=== PATIENT | female | born 1950 | race Caucasian/White ===

== ENCOUNTER → 2020-04-14 13:43 | Outpatient (CLI) | payer MEDICARE, SELFPAY ==
--- NOTE | 2020-04-14 13:50 | DI.RAD.S_ITS ---
PROCEDURE: XR SHOULDER RT MIN 2V INDICATIONS: Rt shoulder pain TECHNIQUE: 3 views of the shoulder were acquired. COMPARISON: None. FINDINGS: Bones: No fractures or dislocations. No suspicious bony lesions. Visualized ribs appear intact. Glenohumeral joint degeneration with subchondral sclerosis and spurring. Mild AC joint degeneration. Soft tissues: No suspicious soft tissue calcifications. IMPRESSION: Degenerative changes as above If the patient's pain or other symptoms persist, consider further evaluation with MRI Dictated by: Josh Frausto M.D. on 04/14/2020 at 14:28 Approved by: Josh Frausto M.D. on 04/14/2020 at 14:29
== END ==
PROVIDERS: PCP Family Medicine; Referring Provider Family Medicine; Visit Provider Family Medicine
DX: M25.511 Pain in right shoulder (principal); M19.011 Primary osteoarthritis, right shoulder
CPT/HCPCS: 73030

== ENCOUNTER → 2021-06-21 14:06 | Outpatient (CLI) | payer MEDICARE, SELFPAY ==
[2021-06-21 14:41] LABS: Appearance Urine UA CLEAR; Bilirubin Urine UA 1+ (NEGATIVE); Color Urine UA YELLOW; Glucose Urine UA TRACE g/dL (Negative); Ketones Urine UA TRACE (NEGATIVE); Leukocyte Esterase Urine UA TRACE (NEGATIVE); Nitrite Urine UA POSITIVE (Negative); Occult Blood Urine UA 2+ (Negative); Protein Urine UA NEGATIVE (Negative); Specific Gravity Urine UA 1.025 (1.000-1.035); Urobilinogen Urine UA 0.2 E.U./dL (0.2)
[2021-06-21 14:43] LABS: Ictotest Urine Negative (Negative)
[2021-06-21 14:46] LABS: Bacteria Urine Many (>30); Culture Indicated Urine Specimen Cultured; RBC Urine 5-10/HPF (0-5/HPF); WBC Urine 5-10/HPF (0-5/HPF)
[2021-06-21 14:50] LABS: Hemoglobin A1C% w Est Avg Glu 4.8 % (4.0-6.0)
[2021-06-21 14:52] LABS: Blood Urea Nitrogen 21 mg/dL (7-17); Calcium 10.2 mg/dL (8.4-10.2); Carbon Dioxide 27 mmol/L (22-32); Chloride 105 mmol/L (98-107); Estimated Glomerular Filt Rate > 60.0 mL/min (>60); Glucose 127 mg/dL (80-110); HEMOLYSIS < 15 (0-50); Potassium 4.6 mmol/L (3.4-5.1); Sodium 136 mmol/L (137-145)
[2021-06-21 15:17] LABS: Add Manual Diff / Slide Review NO; Basophils Absolute Auto 0 /uL (0-100); Basophils Percent Auto 0.6 % (0-2); Eosinophils Absolute Auto 100 /uL (0-450); Eosinophils Percent Auto 0.8 % (2-4); Hematocrit 38.9 % (36-46); Hemoglobin 13.2 g/dL (12.0-16.0); Lymphocytes Absolute Auto 2000 /uL (1100-4500); Lymphocytes Percent Auto 28.7 % (25-40); Mean Corpuscular HGB Conc 33.8 % (30-36); Mean Corpuscular Hemoglobin 30.8 PG (26-34); Monocytes Absolute Auto 800 /uL (0-900); Monocytes Percent Auto 11.4 % (3-14); Neutrophils Absolute Auto 4000 /uL (1500-7000); Neutrophils Percent Auto 58.5 % (50-75); Platelet Count 326 X10^3/uL (150-400); Red Blood Cell Count 4.28 X10^6/uL (4.0-5.2); Red Cell Distribution Width 12.9 % (11.6-14.8); White Blood Cell Count 6.8 X10^3/uL (4.5-11.0)
== END ==
PROVIDERS: PCP Family Medicine; Referring Provider Orthopaedic Surgery; Visit Provider Orthopaedic Surgery
DX: Z01.812 Encounter for preprocedural laboratory examination (principal); R73.9 Hyperglycemia, unspecified; N39.0 Urinary tract infection, site not specified
CPT/HCPCS: 36415; 80048; 81001; 83036; 85025; 87077; 87086; 87186

== ENCOUNTER → 2021-10-15 08:25 | Outpatient (CLI) | payer MEDICARE, SELFPAY ==
[2021-10-15 11:14] LABS: COVID19 -Nasal RAPID Negative (Negative)
== END ==
PROVIDERS: PCP Family Medicine; Visit Provider Physician Assistant
DX: Z20.822 Contact with and (suspected) exposure to COVID-19 (principal)
CPT/HCPCS: 87635; C9803

== ENCOUNTER 2021-10-17 09:02 | Observation (INO) | payer MEDICARE, SELFPAY ==
[2021-07-10 08:30] VITALS: BMI 25.8
[2021-10-16] VITALS (13 sets, daily range): BP systolic 99–131; BP diastolic 47–80; PULSE 58–86; RESP 13–18; TEMP 35.9–37.3; O2SAT 94–99; BMI 25.8
[2021-10-16] MEDS: CELECOXIB 200 MG CAPSULE PO (08:54)
[2021-10-16] MEDS: ACETAMINOPHEN 325 MG TABLET 975 MG PO (08:54)
[2021-10-16] MEDS: PREGABALIN 75 MG CAPSULE PO (08:54)
--- NOTE | 2021-10-16 09:00 | DI.RAD.S_ITS ---
PROCEDURE: XR HIP W PEL IF DONE LT 2V INDICATIONS: prosthesis placement TECHNIQUE: 2 view(s) of the hip acquired. COMPARISON: [facility], CR, XR PELVIS WITH LATERAL HIP LEFT, 09/19/2021, 9:59. [facility], RUPERT, [id number] W PEL IF PERFORMED, 12/19/2015, 13:38. FINDINGS: Intraoperative guidance provided for left hip arthroplasty. The prosthesis projects in the expected location. IMPRESSION: Intraoperative guidance for left hip arthroplasty. Dictated by: Nazario Parisi M.D. on 10/16/2021 at 14:35 Approved by: Nazario Parisi M.D. on 10/16/2021 at 14:37
[2021-10-16] MEDS: LACTATED RINGERS 1,000 ML 42 ML IV ×2 (09:33→13:30)
--- NOTE | 2021-10-16 11:03 | PM.PREOP ---
Pre-operative Note COVID-19 COVID-19 status: Negative Interval Note History & Physical reviewed/Exam performed by Physician: Yes Changes to H&P: No
--- NOTE | 2021-10-16 11:04 | P.OP_ITS ---
Operative Date/Time/Diagnoses Date of procedure: 10/16/21 Time of procedure: 11:50 Pre-op diagnosis: left hip OA Post-op diagnosis: same Procedure & Clinicians Procedure: Left total hip arthroplasty anterior approach Same procedure as scheduled: Yes Indications: The patient has had progressively worsening left hip pain with radiographic ross ges consistent with arthritis. Non-operative management has failed and the patient has requested total hip replacement. The risks, benefits and alternatives to surgery were discussed with the patient prior to proceeding. Risks discussed included, but were not limited to, failure to relieve pain, leg length discrepancy, dislocation, stiffness, infection, nerve damage, deep venous thrombosis, pulmonary embolism, stroke, coma, heart attack, permanent paralysis and , as well as the potential need for eventual revision of the prosthetic. Surgeon: Shauna Ko Finance Administrator: Harmony Michel Anesthesia Type: General and Spinal Operative Notes Findings: Soft bone, good fixation good stability Closure Type: primary Specimen(s): none sent Prosthetic devices, grafts, tissues, transplants, or devices: Ko and nephew size 7 standard offset anthology, 52 mm cup, neutral poly liner, 36 by +0 Oxinium head, 1 screw 20 mm Estimated Blood Loss (mL): 250 Blood products transfused: none Procedure in detail: The patient was brought to the operating room. Patient was carefully positioned in the supine position. Time-out was performed and antibiotics were given. Anesthesia was induced. She was positioned in the on the table in order to allow hyperextension of the hip. The left lower extremity was prepped and draped in a standard sterile fashion. An anterior left hip incision was made 1 fingerbreadth lateral to the anterior superior iliac spine and extended distally towards the greater trochanter. Dissection was carried out through skin and subcutaneous tissues. Superficial hemostasis was achieved. The fascia over the tensor fascia rui was defined and incised with a knife. Two Allis clamps were used to grasp the fascia. Tensor fascia rui was retracted laterally. A gelpi retractor was placed. Dissection was carried out down along the neck. The circumflex vessels were carefully identified and cauterized with the Aqua Mantis. There was good visualization of the femoral neck. A Cobra was placed superior to the neck and the gluteus fibers were carefully stripped from that superior aspect of the capsule. A 2nd retractor was placed along the inferior aspect of the neck. The rectus insertion along the capsule was partially released. A 3rd retractor that was then gently placed over the rim of the acetabulum under the rectus. Capsule was carefully incised and released from the intertrochanteric line circumferentially superior to the mid sagittal line and inferiorly to the mid sagittal line until the lesser trochanter was palpable. A tag stitch was placed both in the superior and inferior limb of the capsular insertion. Along the acetabulum capsule was also released up to the mid sagittal 12:00 position. A portion of the labrum was resected. A saw was used to perform an osteotomy at the level of the intertrochanteric line and the junction of the superior femoral neck leaving approximately 1 finger breath of residual inferior neck above the lesser trochanter. A 2nd cut was made along the femoral neck at the base of the head and a napkin ring of neck was removed. Corkscrew was placed in the femoral head and the head was removed without difficulty. Retractors were then repositioned around the acetabulum. Residual labrum was resected and additional osteophytes were removed. A reamer that was 4 mm below the templated size was placed by hand in the acetabulum and it was reamed to centralize the acetabulum. It was then reamed up to 2 under the templated size and fluoroscopy was brought in to confirm the position of the reaming and depth of reaming. I reamed 1 under the anticipated size and touched the rim with line to line reaming. A trial cup was placed and noted that it was appropriately sized and fluoroscopy confirmed position and depth. The component was open and inserted without difficulty fluoroscopic imaging was used to confirm that the cup had been adequately seated and was well positioned. It was further stabilized with a single screw. Neutral poly liner was placed. The cup was tested and noted to be stable. Attention was then directed to the femur. The femur was gently hyperextended additional capsular release was performed as needed in order to allow adequate visualization of the proximal femur with elevation of the femur. Patient was placed in a hyperextended slightly adducted position with maximum external rotation. Box osteotome was used to check for any residual neck as well as sclerotic bone along the trochanter. [place] pepper was placed in the femur. Additional broaching was performed. Canal finder was used to determine the alignment of the canal and position. Size 1 broach was placed. The canal was then appropriately broached up to the templated size as long as there was adequate stability of the broach and serial advancement of the broach without excessive impingement. Specific attention was directed at avoiding varus attempting to direct the distal aspect of the broach more anteriorly and avoiding excessive anteversion. Trial reduction showed acceptable range of motion, good stability, no posterior impingement, episcopal of leg length and appropriate lateral shuck. I also hyperflexed the hip and checked that there was no impingement anteriorly and there was good stability with flexion, adduction and internal rotation. Marcaine and Exparel were injected. The stem was placed without difficulty. Repeat trial reduction and x-ray showed acceptable overall position, length, and no evidence of the femoral fracture. Final head was placed. Wound was meticulously irrigated with normal saline. The hip was reduced and additional Exparel and Marcaine were injected. The capsule was closed with interrupted nonabsorbable sutures. The fascia of the tensor was closed with interrupted and running Vicryl. No drain was placed. Any tensor fascia rui muscle that appeared to be contused or injured which was a minimal amount was carefully resected. Capsule around the tensor was injected with Exparel and Marcaine. The skin was closed with barbed stitches for the subcutaneous tissue and skin. We also used surgical glue. The wound was dressed sterilely. Brief Betadine soak was also used and was meticulously irrigated with normal saline. Patient was transferred to recovery room in satisfactory condition. Complications: none Post-operative Condition: stable Disposition: Acute Care Plan for aftercare: The patient will be maintained on a standard total hip replacement protocol with weight bearing as tolerated and anterior hip precautions. The patient will receive Aspirin and sequential compression devices for DVT prophylaxis. The patient will be discharged home when safe for the home environment.
[2021-10-16] MEDS: CEFAZOLIN 2 GM/20 ML SYRINGE IV ×2 (11:38→20:24)
[2021-10-16] MEDS: TRANEXAMIC ACID 1,000 MG VIAL 1000 MG INJ ×2 (11:55→13:52)
--- NOTE | 2021-10-16 12:03 | SUR.OPER ---
Supine on padded [place] table with bilateral legs secured in padded positioning boots and suspended in positioning spars, operative leg in traction per surgeon. Head on one pillow. Arm on non-operative side secured on padded armboard <90 degrees abduction. Arm on operative side padded and resting across chest then secured with tape over sheet. Padded perineal post in place per surgeon.
[2021-10-16] MEDS: BUPIVACAINE 0.25% (PF) 60 ML, EPINEPHrine 0.3 MG INJ (12:08)
[2021-10-16] MEDS: BUPIVACAINE LIPOSOME 266 MG/20 ML VIAL INJ (12:09)
--- NOTE | 2021-10-16 13:59 | DI.RAD.S_ITS ---
PROCEDURE: XR HIP W PEL IF DONE LT 2V INDICATIONS: LEF T TOTAL HIP TECHNIQUE: AP pelvis and lateral view of the left hip acquired. [facility] 14[facility]02[id number]FOR[facility], 12/19/2015, 13:38. FINDINGS: Bones: Patient is status post total left hip arthroplasty, with hardware components in expected positions. The hip joint appears congruent. The visualized bony structures appear intact. Soft tissues: Overlying postoperative changes are noted. No suspicious soft tissue densities. IMPRESSION: Expected appearance of the total left hip arthroplasty. Dictated by: Nazario Parisi M.D. on 10/16/2021 at 14:45 Approved by: Nazario Parisi M.D. on 10/16/2021 at 14:47
[2021-10-16] MEDS: LACTATED RINGERS 1,000 ML 125 ML IV (16:11)
[2021-10-16] MEDS: IBUPROFEN 400 MG TABLET PO ×2 (18:05→20:24)
--- NOTE | 2021-10-16 19:24 | PC.NURSE ---
Admit Note Pt arrived to room 228 at 1513 from PACU. Alert and oriented x3, denies pain. Able to move legs, denies numbness, good pulses to BLEs. Aquacel dressing to left C/D/I. Walker and clothing at bedside, declines to lock up any valuables in safe. Oriented to call light/bed/tv controls. Bladder scanned for over 500 ml, attempted to void via bedpan with no success, denies any urge to void. Straight cathed per MD order with 700 ml clear yellow urine resulting. Call light within reach.
[2021-10-16] MEDS: polyethylene glycoL 3350 17 GM POWD.PACK PO (20:24)
[2021-10-16] MEDS: ACETAMINOPHEN 325 MG TABLET 650 MG PO (20:24)
[2021-10-16] MEDS: DOCUSATE 100 MG CAPSULE PO (20:25)
[2021-10-16] MEDS: ASPIRIN EC 81 MG TABLET PO (20:25)
[2021-10-16] MEDS: OXYCODONE IR 5 MG TABLET PO (23:16)
[2021-10-17] VITALS: BP 103/55; PULSE 73; RESP 18; TEMP 36.8; O2SAT 95
[2021-10-17] MEDS: LACTATED RINGERS 1,000 ML 125 ML IV (00:03)
[2021-10-17] MEDS: IBUPROFEN 400 MG TABLET PO ×4 (00:08→11:41)
[2021-10-17] MEDS: CEFAZOLIN 2 GM/20 ML SYRINGE IV (03:17)
[2021-10-17 04:00] VITALS: BP 106/57; PULSE 61; RESP 18; TEMP 36.6; O2SAT 96
[2021-10-17 05:11] LABS: Hematocrit 30.4 % (36-46); Hemoglobin 10.1 g/dL (12.0-16.0)
--- NOTE | 2021-10-17 07:15 | PM.DS.1 ---
History of Present Illness History of Present Illness Date Patient Seen: 10/17/21 Time Patient Seen: 07:15 Chief complaint: Left hip pain s/p left ARUN Narrative: Patient is complaining of mild left hip pain this morning. She denies any new numbness or tingling. No fevers, chills, night sweats. Overall she is feeling well. She would like to work with physical therapy and hopefully discharge home today. Discharge Providers Provider Discharge Date: 10/17/21 Primary care physician: Dedrick Rivera MD Consults: 10/16/21 09:00 Consult to Anesthesiology Routine Comment: Consulting Provider: Anesthesiologist Reason for consultation: Regional block for post operative pain control 10/16/21 15:02 Consult to Discharge Planning Routine Comment: Consult to Physical Therapy Evaluate & Treat Comment: Physician Instructions: post op ARUN protocol Consult to Respiratory Therapy Evaluate & Treat Comment: Physician Instructions: Evaluate and treat Discharge provider: Harmony Michel PA-C Exam Vital Signs (past 8 hours): - 10/17/21 00:00 10/17/21 04:00 Temperature 98.3 F 97.9 F Pulse Rate 73 61 Respiratory Rate 18 18 Blood Pressure 103/55 L 106/57 L Pulse Oximetry 95 96 Oxygen Delivery Method Room Air Oxygen Flow Rate 0 Narrative Exam Narrative: Pleasant 71-year-old female, resting comfortably in bed, no acute distress. Dressing is clean, dry, intact. Bilateral lower extremities: Motor functions are grossly intact, sensation is grossly intact to light touch, calves are soft and nontender to palpation. Objective Labs Result Diagrams: 10/17/21 04:39 Labs: Laboratory Results - last 24 hr 10/17/21 04:39 Hgb 10.1 L Hct 30.4 L PFSH Medical History Osteoarthritis Peeling skin Surgical History History of carpal tunnel release of both wrists Hx of appendectomy Hx of bilateral cataract extraction (2017) Social History household members: spouse Smoking Status: Never smoker alcohol intake: current Discharge Assessment & Plan Assessment and Plan Assessment: Stable status post left total hip arthroplasty, anterior approach Plan of Treatment: -mobilize with PT. Maintain anterior hip precautions x6 weeks. Weightbearing as tolerated with front wheel walker -continue with current pain regimen and DVT prophylaxis -DC home today once cleared by PT Discharge Plan Discharge Plan Patient Disposition: Home Discharge orders & Medications Discharge Orders: Discharge (Order); Ordered 10/17/21 Ordered By: Harmony Michel Prescriptions: New acetaminophen 500 mg capsule 500 mg PO Q4H MDD Max 3000 mg per day PRN (Reason: fever or pain) Qty: 90 0RF aspirin 81 mg Tablet,Delayed Release (Dr/Ec) 81 mg PO BID Qty: 84 0RF docusate sodium 100 mg Capsule 100 mg PO BID PRN (Reason: Constipation from narcotic pain meds) Qty: 30 0RF ibuprofen 400 mg Tablet 400 mg PO Q4HR MDD Max 2400 mg per day Qty: 90 0RF oxycodone 5 mg Tablet 5 mg PO Q3HR PRN (Reason: Pain, Moderate (4-6)) Qty: 42 0RF Continued etodolac 500 mg Tablet 500 mg PO DAILY PRN (Reason: Pain) 0RF Discontinued aspirin [Aspir-81] 81 mg Tablet,Delayed Release (Dr/Ec) 81 mg PO DAILY 0RF Follow up/Referrals: Dedrick Rivera MD [Primary Care Provider] - Shauna Ko MD [Physician] - (10-14 days for postoperative visit) Diet/Activity/Treatments Diet: Diet as Tolerated and Regular Other treatments: Medications: -Aspirin 81mg twice daily x6 weeks to prevent blood clots. -OTC Tylenol 500 mg 1 tablet every 4 hours as needed for pain/fever. Max 6 tablets per day. -Ibuprofen 400 mg 1 tablet every 4 hours as needed for pain/inflammation. Max 2,400 mg per day. -Oxycodone 5 mg take 1-2 tablets every 4 hours as needed for moderate-severe pain (narcotic pain medication). -As needed medications: -Ducolax and /or MiraLax as needed for constipation from narcotic pain medications. -Pepcid AC as needed for stomach upset (usually from aspirin or ibuprofen). Dressing/Wound care: -Keep Aquacell dressing in place until postoperative follow-up office visit. -Okay to shower. Keep wound out of direct water stream. No soaking or submerging until all the scabs fall off (approximately 6 weeks). -Please call the office if dressing becomes wet, soiled, or saturated. Activities: -Maintain anterior hip precautions x6 weeks. -Weight-bearing as tolerated. Use front wheeled walker, and progress to cane when safe. -Continue with home exercises as directed by your physical therapist. -Elevate ?toes above the nose if you have significant swelling in your lower leg. (A wedge pillow is easiest.) -Ice your incision as needed for pain/inflammation/swelling. Protect your skin with a folded pillowcase. Follow-up: -Follow-up with your surgeon or PA in the office in 10-14 days after surgery. -Follow-up with your surgeon 6 weeks postoperatively. Call the office if you have chest pain, shortness of breath, significant swelling that will not resolve with elevating, fever over 101?, significantly worsening pain. [facility]: [phone] Skin/Wound/Dressing Care Report to your healthcare provider any signs of infection, such as:: chills, fever, night sweats, unusual drainage and unusual redness Visit Report/Discharge Packet Instructions: DI for Hip Replacement Stand Alone Forms: Surgery Discharge Discharge Data Primary Care Provider: Dedrick Rivera Attending Provider: Shauna Ko
[2021-10-17 08:00] VITALS: BP 97/55; PULSE 66; RESP 16; TEMP 37.2; O2SAT 96
[2021-10-17] MEDS: ASPIRIN EC 81 MG TABLET PO (08:27)
[2021-10-17] MEDS: polyethylene glycoL 3350 17 GM POWD.PACK PO (08:27)
[2021-10-17] MEDS: DOCUSATE 100 MG CAPSULE PO (08:27)
[2021-10-17] MEDS: ACETAMINOPHEN 325 MG TABLET 650 MG PO (08:27)
[2021-10-17] MEDS: OXYCODONE IR 5 MG TABLET PO ×2 (08:28→11:41)
--- NOTE | 2021-10-17 10:27 | PT.IIE ---
Current Diagnoses Unilateral primary osteoarthritis, left hip (10/17/21) Surgery Performed Operation Date: 10/16/21 10:45 Actual Procedures p Total Hip Arthroplasty/Anterior Approach(Left) - Shauna Ko MD Medical History (Last Reviewed 10/17/21 @ 07:16 by Harmony Michel PA-C) Osteoarthritis Peeling skin Physical Therapy Inpatient Evaluation/Re-Eval M1 PT/OT-IP Prior Functional Status Start: 10/17/21 10:37 Freq: NEEDED Status: Active Protocol: Document 10/17/21 10:27 DLM (Rec: 10/17/21 10:56 DLM [id number]) Medical Review Prior Functional Status Medical History Reviewed Yes Diet/Fluid Consistency Regular Communication WNL, needs glasses to read Mobility and Gait Independent without device, plans to borrow 3WW and cane from neighbor, neighbor also has a FWW she may be able to borrow Activities of Daily Living and IADL's Independent, drives Prior Functional Level (Other details) left hip pain limited her activity tolerance before surgery Social History Household Members spouse Living Arrangements House Number of Floors (Floors) One Floor Number of Stairs To Enter/Railing? 1-2 without rails Home Environment Standard Height Toilet,Walk in Shower,Tub/Shower Additional Social History Comment has borrowed 3WW in her hospital room, also borrowed a cane, she believes she can borrow a fWW as well M2 PT-IP Current Condition Start: 10/17/21 10:37 Freq: NEEDED Status: Active Protocol: Document 10/17/21 10:27 DLM (Rec: 10/17/21 10:56 DL [id number]) Physical Therapy Current Condition Current Condition Evaluation Date 10/17/21 Treatment Diagnosis left anterior ARUN, impaired mobility and gait Onset Date 10/16/21 M3 PT-IP Subjective Start: 10/17/21 10:37 Freq: NEEDED Status: Active Protocol: Document 10/17/21 10:27 DLM (Rec: 10/17/21 10:56 DL [id number]) Subjective Physical Therapy Visit Type Type Initial Evaluation Visit Start Time 09:17 Visit Stop Time 10:27 Total Visit Minutes 70 Number of RATER ASSOCIATE Visits 0 Physical Therapy Visit Comments Patient Comments She reports having mild numbness on the top of left foot while resting in bed, she feels like her left leg is longer than the right Patient Goals go home today Therapy Pain Assessment Pain When Pain Assessed After Treatment Pain Present Pain Present Pain Reported Location LEFT HIP Intensity 4 Scale Used Numeric (0 - 10) Description Aching,Tender,With Movement Pain Behaviors Guarding Pain Management Techniques Apply Cold,Elevation,Re- positioning M4 PT-IP Mobility and Gait Start: 10/17/21 10:37 Freq: NEEDED Status: Active Protocol: Document 10/17/21 10:27 DLM (Rec: 10/17/21 10:56 DLM [id number]) PT-Bed Mobility Assessment Supine to Sit Supine to Sit Minimal Assistance Sit to Supine Sit to Supine Minimal Assistance Scooting Scooting to Edge of Bed Independent Scooting Up and Down in Bed Independent PT-Transfer Assessment Sit to and From Stand Sit to and from Stand Independent,Use of Upper Extremities Equipment Transfer Assistive Device Gait Belt,Front Wheeled Walker Transfers Transfer Destination Bed,Chair Transfer Technique Stand Step Pivot Transfer Ability Level of Assist Independent,Use of Upper Extremities Comments Mobility Comments she needs education for safe use of UE support during sit- stand Gait Assessment Gait Gait Assistance Required: Standby Assistance Distance (Feet) 200 Able to Maintain Weight Bearing Status Yes During Gait Assistive Devices Assistive Device Gait Belt,Front Wheeled Walker Gait Deviations General Gait Pattern Antalgic Factors Limiting Gait Function Factors Limiting Gait Function Decreased Activity Tolerance, Decreased Strength,Limited Range of Motion,Pain Comments Gait Comments she had difficulty finding a safe pattern with her feet and the FWW but with extra time and training she was able to establish a safe pattern, she tends to keep left LE far in front of her and avoid left knee flexion during swing phase of gait Stair Climbing Assessment Evaluation Level of Assist On Stairs Standby Assistance Devices Stair Climbing Assistive Devices Front Wheel Walker Technique/Endurance Stair Climbing Direction Ascend and Descend Stair Climbing Technique Step to Step Number of Steps Climbed 1 Query Text: Stair Climbing Set # Repetitions (reps) 2 Comments Stair Climbing Comments reviewed options for pt to have UE support on her stairs at home, she reports holding door frames in past, she has a cane and Spouse for assistance, she reports she may be able to use the FWW on the garage step PT-Balance Assessment Sitting Balance and Reactions Static Sitting Balance Ability Normal Dynamic Sitting Balance Ability Good Standing Balance and Reactions Static Standing Balance Ability Good Dynamic Standing Balance Ability Good Device Used FWW M5 PT-IP Objective Assessments Start: 10/17/21 10:37 Freq: NEEDED Status: Active Protocol: Document 10/17/21 10:27 DLM (Rec: 10/17/21 10:56 DL [id number]) Orientation Orientation/Cognition Level of Alertness Alert Orientation Name,Age,Birthday,Month,Date, Year,Day of Week,Place, Situation Language Function Ability No Deficits Noted Safety Awareness Understands Safety Issues Memory Description No Deficits Noted Gross Range of Motion Upper Extremity ROM Assessment Within Functional Limits Lower Extremity ROM Assessment Left Impaired Impairments ant hip precautions following surgery, ankle is WFL Strength Upper Extremity Strength Assessment Within Functional Limits Lower Extremity Strength Assessment Left Impaired Hip flex 2+/5 Knee 3+/5 Ankle DF 5/5 Comments Strength Comments pain limits left LE strength post-op, no DF weakness identified at this time Coordination Assessment Gross Coordination Gross Coordination WNL Sensation Assessment Sensation Gross Sensation WNL Comments Sensation Comments mild numbness reported anterior aspect left foot before activity but it resolved with mobility and gait, pt reports normal touch sensation in left foot, pt instructed to monitor for numbness and notify her physician/nursing if it continues Muscle Tone Muscle Tone WNL Yes M6 PT-IP Treatment Start: 10/17/21 10:37 Freq: NEEDED Status: Active Protocol: Document 10/17/21 10:27 DLM (Rec: 10/17/21 10:56 DL [id number]) Physical Therapy Treatment Exercises Exercises Ankle Pumps,Gluteal Sets,Quad Sets,Heel Slides Education Education Provided Weight Bearing Status,Post-Op Packet,Safety Equipment Issued Equipment Type and Company pt has borrowed 3WW in her room Other Treatments Other Treatment Performed completed training and education this visit, verbally educated her on car transfers , verbally reviewed bathroom equipment options for home, Pt is aware of [facility] as a place to borrow equipment for home, no family present this visit M7 PT-IP Assessment and Plan Start: 10/17/21 10:37 Freq: NEEDED Status: Active Protocol: Document 10/17/21 10:27 DLM (Rec: 10/17/21 10:56 [facility] [id number]) PT Summary Assessment and Plan Potential Rehabilitation Potential Excellent Status of Condition at Evaluation Evolving Summary Impairments Pain,ROM,Strength,Balance, Sensation,Bed Mobility, Transfers,Gait,Activity Tolerance Progress Towards Goals Safe For Discharge,Goals Met Assessment Summary Anais is alert and resting in bed. She tolerated mobility and gait well this visit with FWW. Pt was educated in anterior hip precautions. Training completed with fWW for gait and stairs. Pt has a borrowed 3WW which was trialed for gait but she is safer with the fWW at this time. Pt plans to get a fWW for home use. She appears safe for discharge home today when medically cleared. She reports having a supportive Spouse at home to assist her as needed. Goals Bed Mobility Goal Standby Assistance,Minimal Assistance Transfer Goal Standby Assistance,Front Wheeled Walker Gait Goal Standby Assistance,Front Wheel Walker Gait Distance 150 feet Other Goals up and down 1-2 steps with UE support, CG/min assist Days to Meet Goals 1 Frequency of Treatment Frequency Of Treatment Discharge Treatment Plan Physical Therapy Treatment Plan Bed Mobility Training,Transfer Training,Gait Training, Therapeutic Exercise,Balance Retraining,Post Op Education, Discharge Planning,Hot or Cold Pack,Neuromuscular Re-ed Precautions Anterior Hip Precautions No Hip Extension,No Hip External Rotation Weight Bearing Status Weight Bearing Status Weight Bear as Tolerated Recommendations To Nursing Amount of Assist Needed Standby Assistance Discharge Recommendations PT Discharge Recommendations Home with Assistance, Outpatient PT Other Discharge Recommendations she reports her Spouse will assist at discharge, she has out-pt PT scheduled Equipment Needed for Home Before recommend she use a fWW at Discharge discharge, pt plans to borrow one from her Neighbor Transportation Needs at Discharge Private Vehicle
[2021-10-17 11:30] VITALS: BP 96/55; PULSE 69; RESP 17; TEMP 36.5; O2SAT 97
--- NOTE | 2021-10-17 11:40 | CM.DANOTE ---
DCP/Assessment: Reviewed chart. Patient is a 71yr old female admitted [facility] for elective left ARUN performed on 10-16-21. PCP is Dr. Rivera. Primary payor is 1)Medicare 2)[facility]. Met with patient this AM explained CM/SW role. Patient reports that she plans to d/c home today with outpatient follow up next week. Patient denies any d/c planning needs. Patient evaluated by therapy and cleared to d/c home. P: Home today. KJS Discharge Planning/Care Management CM Discharge Assessment Start: 10/17/21 11:38 Freq: Status: Active Protocol: Document 10/17/21 11:38 KJS (Rec: 10/17/21 11:40 KJS [id number]) Discharge Planning Assessment Assigned Sanitation Worker Hosing Machinery GERSON Kline Contact Information Joao Jimenez Advance Directives? Yes: [facility] Advance Directives on File No History Provided By Patient,Medical Record Prior Living Arrangements House Household Members spouse Type of transporation used prior to Drives own vehicle admit Independent with ADL's Yes Is patient alert and oriented? Yes Caregiver for Another No DME Already Rented / Owned FWW / Walker Patient/Family Preference OP PT Therapy Barriers to Discharge No Discharge Plan Home Referrals Initiated None needed Review Status In Process Next Review Type Continued Stay Review Pre-Anesthesia Assessment Start: 07/10/21 08:30 Freq: Status: Complete Protocol: Document 07/10/21 08:30 CAB (Rec: 07/10/21 09:18 CAB [id number]) Pre-Anesthesia Assessment Preferred Name Pat Patient Information Reviewed Via Phone Assessment Assessment Completed With Patient H&P Completed Within 30 Days Yes Diagnostic Results BMP/CMP,CBC Comment Labs @ [facility], COVID screen @ [facility] Primary Care Provider Dedrick Rivera Seen Specialist in Last 12 Months Yes Specialist Seen Orthopedist Primary Language Kyrgyz Bookmobile Librarian Required No Height 170.18 cm Weight 74.843 kg Body Mass Index (BMI) 25.8 Hearing Ability Normal Visual Assist Glasses Dentition Type Teeth, Natural Present Barriers to Learning None Hx Anesthesia Reactions No Hx Family Anesthesia Reaction No Hx Malignant Hyperthermia No Hx Blood Transfusions No Anesthesia Review Requested No alcohol intake current alcohol intake frequency 3 or more drinks per day Alcohol Intake Frequency Other: 3 beers daily Smoking Status Never smoker Substance Use Type does not use Musculoskeletal Symptoms Abnormal Gait,Difficulty Walking,Joint Pain History of Falling (Recent or History of No ) Patient is completely paralyzed or No completely immobile Mental Status Oriented to own ability Is patient on oxygen? No Does patient have BAHENA/SOB No Hx Sleep Apnea No Currently Taking a Beta Mirella No Can You Climb a Flight of Stairs Without Yes SOB Hx Chest Pain No Hx SOB No Hx Syncope or Dizziness No Anti-Coagulant Therapy No Has a Forklift Truck Mechanic No Cardiac Testing No Hx Pacemaker/ICD No Pacemaker Rep Required? No Cardiac Clearance Received Not Applicable Diet Type At Home Regular dysphagia No Urinary Catheter Present No Hx Urinary Self Catheterization No Diabetes No Patient No Lactating No Hx Drug Resistant Organism No Presence of External or Internal Medical Yes: Bilat IOLs Devices Have you had any close contact with No someone diagnosed with COVID-19? Marital Status Lives With spouse Prior Living Arrangements House Number of Floors (Floors) Two Floors Support System Spouse Does the Patient Have Assistance After Yes Surgery Patient Discharge Plan Description Return Home Comment Pt advised overnight length of stay per surgeon Feels Safe in Current Environment Yes Been Physically Hurt or Threatened By a No Person in Current Environment Do you have thoughts of harming yourself None or others? Are you currently considering suicide? No Do you have a plan to hurt yourself or No Plan others? Do You Have Any Spiritual Beliefs That No May Affect Your HC Choices? Do You Have Any Cultural Practices That No May Affect Your HC Choices? Comment Synagogue Who Can We Speak to About Patient's Care Family, friends Identifying Code for Release of Patient Declines to issue Information Health Care Proxy/Next of Kin Joao () Health Care Proxy Emergency Contact Name Joao () Emergency Contact Advance Directives? Yes: POLST Power of Keying Machine Operator Yes Power of Keying Machine Operator Name Angelito (son) Power of Keying Machine Operator PAC Instructions Do not shave/clip surgical site,Durable medical equipment ,Medications to take/avoid, Nasal antibiotic,No ETOH/ petroleum product on skin DOS, NPO,Post-op transportation,Pre -surgical wash,Sensory aids, Sturdy shoes/comfortable clothes,Do not bring valuables and remove jewelry
== END 2021-10-17 14:12 | disposition home or self-care (01) ==
LOC: OR 10:57 → ICU 10:58
PROVIDERS: Admitting Provider Orthopaedic Surgery; PCP Family Medicine; Referring Provider Family Medicine; Visit Provider Orthopaedic Surgery
PROC: (CPT 27130; principal; 2021-10-16 10:45)
DX: M16.12 Unilateral primary osteoarthritis, left hip (principal)
CPT/HCPCS: 27130; 36415; 73502; 76000; 85014; 85018; 97110; 97116; 97162; C1776; G0378; C9290; J0171; J0690; J1100; J2250; J2405; J2704; J3010

== ENCOUNTER → 2024-01-26 12:02 | Outpatient (CLI) | payer OTHER, SELFPAY ==
[2021-10-16 15:36] VITALS: BMI 25.8
--- NOTE | 2024-01-26 | DI.RAD.S_ITS ---
PROCEDURE: XR KNEE RT 3V INDICATIONS: Pain in right knee TECHNIQUE: 3 views of the knee were acquired. COMPARISON: None. FINDINGS: Bones: No fractures or dislocations. Small osteophytes. No suspicious bony lesions. Soft tissues: Small joint effusion. No suspicious soft tissue calcifications. IMPRESSION: [id number] right knee DJD. Dictated by: Nazario Parisi M.D. on 01/26/2024 at 16:32 Approved by: Nazario Parisi M.D. on 01/26/2024 at 16:33
== END ==
PROVIDERS: PCP Family Medicine; Referring Provider Family Medicine; Visit Provider Family Medicine
DX: M17.11 Unilateral primary osteoarthritis, right knee (principal); M25.561 Pain in right knee; M25.461 Effusion, right knee
CPT/HCPCS: 73562

== ENCOUNTER → 2024-02-09 14:41 | Outpatient (CLI) | payer OTHER, SELFPAY ==
[2021-10-16 15:36] VITALS: BMI 25.8
--- NOTE | 2024-02-09 14:42 | DI.RAD.S_ITS ---
PROCEDURE: XR DEXA AXIAL SKELETON INDICATIONS: MENOPAUSE COMPARISON: None. FINDINGS: Lumbar Spine: Bone mineral density 1.399 g/cm2, T score 3.2. Right Hip: Bone mineral density 0.787 g/cm2, T score -1.3. Right Femoral Neck: Bone mineral density 0.672 g/cm2, T score -1.6. Left Forearm: Bone mineral density 0.622 g/cm2, T score -1.2. Fracture Risk Calculation (when applicable): 10-year fracture risk of a major osteoporotic fracture 11% and of a hip fracture 2.3%. (T score greater or equal to -1.0 to: NORMAL) (T score from -1.1 to -2.4: OSTEOPENIA) (T score less than or equal to -2.5: OSTEOPOROSIS) IMPRESSION: 1. Osteopenia. Dictated by: Nazario Parisi M.D. on 02/09/2024 at 22:10 Approved by: Nazario Parisi M.D. on 02/09/2024 at 22:11
== END ==
PROVIDERS: PCP Family Medicine; Referring Provider Family Medicine; Visit Provider Family Medicine
DX: Z78.0 Asymptomatic menopausal state (principal); M85.89 Other specified disorders of bone density and structure, multiple sites
CPT/HCPCS: 77080; 77081

== ENCOUNTER → 2024-03-18 12:02 | Outpatient (CLI) | payer OTHER, SELFPAY ==
[2021-10-16 15:36] VITALS: BMI 25.8
--- NOTE | 2024-03-18 | DI.RAD.S_ITS ---
PROCEDURE: XR CERVICAL SPINE 4V OR 5V INDICATIONS: left arm numbness TECHNIQUE: 5 views of the cervical spine were acquired. COMPARISON: None. FINDINGS: Bones: No fractures or dislocations to the T2 level. No suspicious bony lesions. There is decreased range of motion between flexion and extension, with preserved normal bony alignment. No acute compression fractures. Severe multilevel cervical spondylosis with disc space loss and degenerative endplate changes. Associated facet arthropathy. Findings are most pronounced at C5-6 and C6-7. Soft tissues: Prevertebral soft tissues are normal in thickness. IMPRESSION: Cervical spine without acute osseous abnormalities. Decreased range of motion between flexion extension without evidence for instability. Severe multilevel cervical spondylosis most prominent at C5-6 and C6-7. Dictated by: Jesus Marroquin M.D. on 03/18/2024 at 20:37 Approved by: Jesus Marroquin M.D. on 03/18/2024 at 20:38
== END ==
PROVIDERS: PCP Family Medicine; Referring Provider Family Medicine; Visit Provider Family Medicine
DX: M47.812 Spondylosis without myelopathy or radiculopathy, cervical region (principal); R20.0 Anesthesia of skin
CPT/HCPCS: 72040

== ENCOUNTER → 2025-02-16 15:50 | Outpatient (CLI) | payer OTHER, SELFPAY ==
[2021-10-16 15:36] VITALS: BMI 25.8
--- NOTE | 2025-02-16 15:51 | DI.ECHO.S_ITS ---
[facility] : : [id number] : : [id number] : : Phone: [phone] Echocardiogram Report + + :Name: JAYESH MOHAMUD Study Date: 02/16/2025 Height: 67 in : :[facility] ReadingLocation: Weight: 142 lb : : Gender: Female BSA: 1.7 m2 : :: 1950 Age: 75 yrs BP: 136/75 mmHg: :Reason For Study: MURMUR : :Ordering Physician: JESSICA : :NERY Performed By: Jamari Lopez : :Referring: NERY LOPEZ : + + Interpretation Summary The ejection fraction is estimated to be 60-65%. Diastolic parameters suggest probable normal left ventricular diastolic function and normal filling pressures. The right ventricle is mildly dilated. The right ventricular systolic function is normal. The right atrium is mildly dilated. There is mild mitral regurgitation. Pulmonary artery pressures cannot be estimated because of the lack of a measurable TR jet velocity but the IVC suggests a CVP of around 3 mmHg. The ascending aorta is mildly enlarged. Procedure: A two-dimensional transthoracic echocardiogram with color flow and Doppler was performed. The study quality was technically good. There is no prior echocardiogram noted for this patient. The patient was in normal sinus rhythm during the exam. Left Ventricle: The left ventricle is normal in size. There is normal left ventricular wall thickness. There is no ventricular septal defect visualized. The ejection fraction is estimated to be 60-65%. There are no focal wall motion abnormalities. Diastolic parameters suggest probable normal left ventricular diastolic function and normal filling pressures. Right Ventricle: The right ventricle is mildly dilated. The right ventricular systolic function is normal. Atria: The left atrial size is normal. The right atrium is mildly dilated. There is no Doppler evidence for an interatrial shunt. The atrial septum is aneurysmal. Mitral Valve: The mitral valve leaflets appear normal. There is no evidence of stenosis, fluttering, or prolapse. There is mild mitral regurgitation. Aortic Valve: The aortic valve is trileaflet. The aortic valve is mildly calcified. The aortic valve opens well. There is no aortic valve stenosis. No aortic regurgitation is present. Tricuspid Valve: The tricuspid valve leaflets are thin and pliable. There is a trace or physiologic amount of tricuspid regurgitation. Pulmonary artery pressures cannot be estimated because of the lack of a measurable TR jet velocity but the IVC suggests a CVP of around 3 mmHg. Pulmonic Valve: The pulmonic valve leaflets are thin and pliable; valve motion is normal. There is trace pulmonic regurgitation. Great Vessels: The aortic root is mildly dilated. The ascending aorta is mildly enlarged. The pulmonary artery is not well visualized, but is probably normal size. The IVC is of normal diameter and collapses greater than 50% with a sniff. This suggests a low right atrial pressure of 3 mm Hg. Pericardium/ Pleura There is no pericardial effusion. There is no pleural effusion. MMode/2D Measurements & Calculations LVIDd: 4.1 cm LVOT diam: 2.2 cm LVIDs: 2.8 cm Ao root diam: 4.0 cm FS: 31.8 % asc Aorta Diam: 3.8 cm EPSS: 0.52 cm Ao Arch Diam (Prox Trans): 2.0 cm IVSd: 1.0 cm LVPWd: 0.84 cm LV lombardi. diameter/BSA (cm/m^2): 2.4 LV sys. diameter/BSA (cm/m^2): 1.6 LA A2 area: 21.2 cm2 RA long axis: 5.3 cm LA A4 area: 15.3 cm2 RA area: 18.9 cm2 LA length (vol): 4.7 cm RA vol: 57.9 ml LA vol: 58.3 ml RA : 33.1 ml/m2 LA vol index: 33.3 ml/m2 IVC diam: 1.9 cm RVD1 (basal): 4.4 cm RVD2 (mid): 3.3 cm TAPSE: 2.2 cm Doppler Measurements & Calculations Ao V2 max: 150.3 cm/sec LVOT Max Damion: 123.7 cm/sec Ao V2 mean: 98.5 cm/sec LV V1 max P.1 mmHg Ao max P.0 mmHg LV V1 VTI: 28.5 cm Ao mean P.4 mmHg SAMANTHA(I,D): 3.3 cm2 Ao V2 VTI: 32.6 cm SAMANTHA(V,D): 3.1 cm2 sev ratio: 0.87 SAMANTHA indexed to BSA (cm^2/m^2): 1.9 MV E max damion: 50.0 cm/sec PA V2 max: 72.9 cm/sec MV A max damion: 72.9 cm/sec PA V2 mean: 49.5 cm/sec MV E/A: 0.69 PA mean P.1 mmHg Med Peak E' Damion: 6.6 cm/sec PA pr(Accel): 43.0 mmHg E/E' med: 7.6 Lat Peak E' Damion: 7.8 cm/sec E/E' lat: 6.4 E/e' average: 7.0 MV dec time: 0.30 sec SV([facility]): 108.1 ml Reading Physician:08:23 PM
== END ==
PROVIDERS: PCP Family Medicine; Referring Provider Family Medicine; Visit Provider Family Medicine
DX: I34.0 Nonrheumatic mitral (valve) insufficiency (principal); R01.1 Cardiac murmur, unspecified; I77.810 Thoracic aortic ectasia; I77.89 Other specified disorders of arteries and arterioles
CPT/HCPCS: 93306